=== PATIENT | male | born 1960 | race Caucasian/White ===

== ENCOUNTER 2016-09-24 17:38 | Inpatient (IN) | payer OTHER ==
[~2016-09-24] VITALS: Ht 185.4 cm; Wt 103.0 kg
[~2016-09-24 17:38] MED LIST: Atropine 1 mg/10 mL (Code) Syringe ONE; EPINEPHrine 0.1 mg/mL 10 mL Syringe ONE; Heparin 1,000 Unit/mL 10 mL Inj ONE; Heparin 1,000 Units/500 mL NS Premix IV ONE; Heparin 5,000 Units/500 mL NS Premix IV ONE; Nitroglycerin 50,000 mcg/250 mL D5W Premix IV ONE; Phenylephrine/NS-PF 100 mCg/mL 5 mL Syringe IVPUSH ONE
--- NOTE | 2016-09-24 17:51 | ED.REPORT ---
HPI-Chest Pain 40 and Over Date of Service Sep 24, 2016 ED Provider: Shamar Zuleta MD Patient is a 55 year old male who presents to the ED vis EMS from [facility] after experiencing an hour of crushing substernal chest pressure prior to arrival, with EKG changes consistent with an acute RI. EKG changes showed anterior ST elevation, with inferior reciprocal changes. The patient does not have any cardiac history. Patient reported associated diaphoresis but denies nausea or vomiting. He was treated with 3x nitroglycerin, 5000mL heparin, 324mg aspirin, a nitro bolus, and Plavix. When transferred to EMS stretcher for transport to [facility], the patient went into V-tach several times, requiring shocking 4x. He was started on amiodarone. There was also question of torsades rhythm, with the patient given IV magnesium. Patient is stable enroute and on arrival to the ED. Nursing Notes Stated Complaint: STEMI Nursing Notes Reviewed: Yes General Time Seen by MD: 17:42 Chief Complaint Chest pain Hx Obtained From: Patient, EMS Arrived By: Ambulance Sudden in Onset?: No Onset Occurred: 1 - 4 hours ago Symptom Duration: Since onset Location: : Substernal Quality: Painful Severity: Current: Moderate Severity: Maximum: Severe Recent Healthcare: No recent doctor visit, No recent hospitalization Similar Sx Previous: No Past Medical History Past Medical History none Past Surgical History none Smoking History Unknown if Ever Smoker Social History Other Social History: Good social support, , Local resident Ambulatory Status Independent Review of Systems Cardiovascular: Reports: Chest pain, Denies: Palpitations GI: Denies: Nausea, Vomiting Skin: Reports Diaphoresis, Denies Rash Complete sys rev & neg: except as marked. Physical Exam Initial Vital Signs see chart Initial VS: Reviewed Head / Eyes: Atraumatic, Normocephalic, PERRL ENT: Conjunctiva normal, No scleral icterus Neck: Supple, Full range of motion Skin: Warm (and well perfused), Dry, No cyanosis Neurologic: Alert, Oriented, Nonfocal Psychiatric: Mood/affect normal, Behavior normal, Normal thought content General/Constitutional: Awake, Alert Respiratory / Chest: Breath sounds NL, Breath sounds = bilat, No respiratory distress, No rales, No rhonchi, No wheezing Cardiovascular: Heart rate NL, Regular rhythm, Heart sounds NL, No gallop, No murmurs, No rubs, Peripheral circulation NL, Pulses = bilaterally Abdomen: Soft, Non-tender, No distention Lower Extremity / Pelvis / MS: Neurologic intact, Vascular intact Upper Extremity / MS: Neurologic intact, Vascular intact Interpretation & Diagnostics Lab Results Interpretation Result Diagram: 09/24/16181109/24/161811 Re-Eval/Medical Decision Med Decision/Clinical Course The patient is a 55-year-old male with no significant past medical history who presents from [facility] in [place] after complaining of crushing substernal chest pain and diaphoresis. EKG there was transmitted electronically and demonstrated anterior ST elevation with reciprocal inferior ST depressions consistent with acute ST elevation RI. The Wildlife Science Professor was activated and STEMI manager media was notified prior to the patient's arrival and was at the bedside upon his arrival. I was subsequently notified that just prior to transfer the patient developed several bouts of ventricular fibrillation requiring electrical defibrillation. Prior to arrival he is received aspirin, heparin bolus and infusion, 300 mg of Plavix and amiodarone. Upon arrival he was conversant with stable vital signs. He was immediately taken for cardiac catheterization with STEMI manager media at the bedside. Time of Eval: 17:42 Patient Status: Condition improved Re-Evaluation/Progress Note: Patient is transferred to the cath lab tech. He agrees with the plan for admission to the hospital. Consultation : Referral / Consult Name: Elier Blake MD Consulted With: Cardiology Call Returned at: 17:30 [facility] Programmer: Requested cath lab tech, Accepts admit Note: Dr. Blake is present in the ED to greet the patient on arrival. He was made aware of the STEMI and will take the patient directly to the cath lab tech. Counseled Regarding: Diagnosis, Need for admission Discharge & Departure Primary Impression: STEMI (ST elevation myocardial infarction) Involved coronary artery: unspecified coronary artery Qualified Code: I21.3 - ST elevation (STEMI) myocardial infarction of unspecified site Additional Impressions: Ventricular fibrillation Cardiac arrest Disposition: ADMITTED TO HOSPITAL Discharge Condition All VS Reviewed: Yes Condition: Improved Ref[facility]: [facility] Billable Proc Time Spent: 75-104 minutes Services Performed: Patient management by me, Time spent at bedside, Reviewing test results, Reviewing imaging, Discussing patient care, Documentation in record, Time with fam/surrogate Critical Care Notes: Discussing the case with STEMI manager media, making arrangements for transfer and discussing patient with physician at transferring hospital. Scribe Attestation Portions of this note were transcribed by Milla Laurent. I, Dr. Zuleta personally performed the history, physical exam and medical decision-making; I reviewed and confirmed the accuracy of the information in the transcribed note. Signed by: Na Garcia, 09/24/2016 1822 copies to: [facility] Shamar Maria MD Sep 24, 2016 17:51 Milla Laurent Sep 24, 2016 17:59
[2016-09-24] MEDS ORDERED: fentaNYL-PF 50 mCg/mL 2 mL Inj ONE (17:52)
[2016-09-24] MEDS ORDERED: Heparin 1,000 Unit/mL 10 mL Inj ONE (18:09)
[2016-09-24 18:15] LABS: BASOPHILS % (AUTO) 0.1 % (0-3); EOSINOPHILS % (AUTO) 0.3 % (0-5); Mean Corpuscular Hemoglobin 29.6 pg (27.0-35.0); Mean Corpuscular Volume 84.8 fL (81-100); NEUTROPHILS % (AUTO) 86.8 % (40-74); Platelet Count 216 bil/L (150-400)
[2016-09-24] MEDS ORDERED: Ondansetron 2 mg/mL 2 mL Inj ONE (18:27)
[2016-09-24 19:45] VITALS: BP 103/64; PULSE 82; RESP 16
[2016-09-24 19:55] VITALS: BP 103/68; PULSE 82; RESP 16; O2SAT 95
[2016-09-24 20:00] VITALS: BP 104/75; PULSE 83; RESP 18
--- NOTE | 2016-09-24 20:14 | DRSVH ---
PROCEDURE: X-RAY CHEST ONE VIEW, PORTABLE ([id number]) INDICATIONS: POST PROCEDURE TECHNIQUE: One view of the chest was acquired. COMPARISON: None. FINDINGS: Surgical changes and devices: None. Lungs and pleura: There is diffuse interstitial prominence. No focal pulmonary opacities. No pleural effusion. Mediastinum: Mediastinal contours appear normal. Heart size is mildly enlarged. Bones and chest wall: No suspicious bony lesions. Overlying soft tissues appear unremarkable. IMPRESSION: Diffuse interstitial prominence suspicious for mild pulmonary edema. Dictated by: Jackie Bhakta M.D. on 09/24/2016 at 20:13 Approved by: Jackie Bhakta M.D. on 09/24/2016 at 20:13
[2016-09-24] MEDS ORDERED: 0.9% Sodium Chloride 250 ML BOLUS IV PRN (20:40)
[2016-09-24] MEDS ORDERED: Sodium Chloride LOK Flush 10 mL Syringe IVFLUSH PRN (20:40)
[2016-09-24] MEDS ORDERED: Atropine 1 mg/10 mL (Code) Syringe IVPUSH PRN (20:40)
[2016-09-24] MEDS ORDERED: Ondansetron 2 mg/mL 2 mL Inj IVPUSH PRN (20:40)
[2016-09-24] MEDS ORDERED: 0.9% Sodium Chloride 400 ML (4 HRS) IV ONE (20:40)
[2016-09-24 21:00] VITALS: BP 112/71; PULSE 83; RESP 16
[2016-09-24] MEDS ORDERED: Potassium Chloride Oral 20 mEq SR Tab(K 3 - 3.7 & Creat < 2) PO ONE (21:00)
[2016-09-24] MEDS ORDERED: SIMV20TA4 PO (21:36)
[2016-09-24] MEDS ORDERED: ESOM20CA28 PO (21:36)
--- NOTE | 2016-09-24 22:25 | CS94 ---
[address] [address] DIAGNOSTIC CARDIAC CATHETERIZATION PATIENT: MACHELLE VALDEZ : 1960 MR#: [id number] ADMIT: 09/24/2016 JOB ID: [id number] PROCEDURE NOTE--CARDIAC CATHETERIZATION LABORATORY: SERVICE DATE OF PROCEDURE: Saturday, September 24, 2016 FLOOR CLEANER: Elier Blake MD PROCEDURE: 1. Coronary Angiogram--Emergent. 2. Left Heart Catheterization (LHC)--LVED; and Pullback. 3. Percutaneous Coronary Intervention (PCI): a. Primary PCI for STEMI--Xience DG--2.75 x 15 mm--Proximal LAD culprit occlusion. CLINICAL DETAILS: This 55-year-old man presented emergently to the Catheterization Laboratory after he was transferred to this hospital by EMS from [facility] where he had initially presented with severe retrosternal chest tightness. Total ischemic time from onset of chest pain to opening the artery was about 4 hours. In the outside Emergency Department he had ECG showing anterior ST elevation with reciprocal inferior ST depression. He had ventricular fibrillation four times; and he was defibrillated four times , and apparently received no CPR. He has no prior coronary history. Coronary risk factors include current smoking; and untreated hyperlipidemia. PROCEDURAL DETAILS: I evaluated him emergently on his arrival in the Emergency Department after having obtained history from Family members. We discussed the findings, impressions, and management considerations including recommendation to proceed emergently to coronary angiogram, and anticipated PCI for likely occluded proximal LAD. We discussed the procedure including possible risks and complications. We discussed bleeding, infection, and blood clot, as well as injury to nerve, artery, vein or kidney; and also arrhythmia, drug reaction--or Others. We discussed treatment as needed that could include surgery, pacemaker, transfusion. We discussed more serious complications that are possible including stroke, heart attack, , emergency surgery, and transfer for emergency bypass surgery. We discussed stents including mandatory dual platelet anticoagulation, and the possibility of repeat intervention procedures, early or late. After questions and discussion, he signed informed consent to proceed. He was brought to the Catheterization Laboratory where he was prepped sterilely and draped. Prior to the Catheterization Laboratory, he had received Aspirin, Heparin bolus, and Heparin IV infusion, as well as Plavix 300 mg p.o; and amiodarone 150 mg plus amiodarone IV infusion 1 mg/minute. He was relatively hypotensive with systolic blood pressure about 90. CORONARY ANGIOGRAM: Arterial access was obtained without difficulty in the right common femoral artery using fluoroscopic localization over the femoral head, and modified Seldinger technique to insert a 6-[place] Citizen 10 cm sheath. Catheters were advanced and exchanged over a long 0.035 inch J tipped Guidewire. First the Right Coronary Artery was imaged using a 6-[place] Citizen JL-4 Diagnostic catheter. Then, the Left Coronary Artery was imaged using a 6-[place] Citizen JL-4 Guide catheter. LHC: The JR catheter entered the left ventricle incidentally. LVED; and pullback were measured. PCI OF PROXIMAL LAD CULPRIT OCCLUSION: The diagnostic images were reviewed and decision made to proceed emergently with primary PCI of the occluded culprit Proximal LAD. There was ELVIE 0 flow initially. The 6-[place] Citizen JL-4 guide catheter was used for Intervention. The occlusion was crossed with a BMW Wire--0.14 inches x 180 cm--which initially entered a small diagonal at the site of occlusion. The artery was open after that. Door to artery open time was about 39 minutes. A 2nd similar BMW wire was placed distally in the LAD and the 1st wire was used to protect the very small diagonal during Intervention. For the Intervention, additional Plavix 300 mg was given for a total of 600 mg loading dose. Aliquots of NTG IC were used during the Intervention. Dimitris-Synephrine boluses 100 mg IV were used as well. PREDILATATION: The severe residual lesion at the site of occlusion was predilated with a Trek Balloon--2.5 x 15 mm--inflated to a maximum of 8 atmospheres across the site of culprit occlusion. The artery was improved with flow into the LAD. STENT: The proximal LAD target lesion was next treated with a Xience DG--2.75 x 15 mm--deployed across the lesion at 18 atmospheres. POSTDILATATION: The lesion was post dilated with a noncompliant Trek NC Balloon--2.75 x 12 mm--inflated twice within the stented segment to a maximum of 22 atmospheres. A larger postdilatation balloon was considered and deferred. There was an excellent final angiographic result with ELVIE-3 flow; no residual lesion; and no angiographic complication evident. The small diagonal at the treatment site was maintained, and improved, after Intervention. Procedure without difficulty. Patient tolerated procedure well. No complication. A side-arm sheath angiogram showed adequate access for a closure device. Arterial hemostasis was obtained without difficulty using a 6-[place] Citizen Angio-Seal device. The patient was transferred from the Catheterization Laboratory stable, improved, and now chest pain-free to the CCU for ongoing care including by the admitting Hospitalist Service. I discussed the procedure, findings, and further recommendations with the patient, with his , with multiple family members; and with the Hospitalist Service; and with Cardiology. FINDINGS: 1. LMCA: The left main coronary artery is a large, very short vessel with no angiographic disease. 2. LAD: The Left Anterior Descending Coronary Artery is occluded in its proximal--near ostial segment with haziness at the point of occlusion. Note some right to left collaterals were seen as well. When opened, the LAD is a large transapical vessel. There is one small diagonal at the occlusion site; and a small to moderate (2 mm) 2nd diagonal; and finally a 3rd moderate (2-2.25 mm) 3rd diagonal. The LAD has a moderate tubular lesion of about 50 % at the bifurcation of the 3rd diagonal. 3. LCX: The Left Circumflex Coronary Artery is a large codominant vessel. Its distribution consists primarily of one large branching posterolateral vessel. There is no angiographic obstructive disease. 4. RCA: Codominant. RCA has no obstructive disease. 5. LHC: LVED=38 mmHg; and no systolic gradient across AoV. CONCLUSIONS: 1. PCI--Xience DG of Proximal/near Ostial LAD--Xience 2.75 x 15 mm Stent post dilated at high pressure. 2. ACS-anterior STEMI with Proximal LAD culprit occlusion. 3. Coronary Artery Disease (CAD)--Single-Vessel CAD of Proximal LAD; and also note intermediate Mid LAD lesion. 4. Elevated LVED. RECOMMENDATIONS: 1. ECASA-Indefinitely. 2. Plavix--Plan one year of Plavix with ongoing cardiology follow-up if well tolerated. I discussed with the patient and his and Family the critical importance of mandatory dual antiplatelet therapy; and not to stop Plavix for any reason without immediate Cardiology consultation. 3. Echocardiogram. 4. OMT--Optimal medical therapy including aspirin, Plavix, beta daphne, PRADIP inhibitor, and high-intensity statin. 5. Risk factor modification; including we discussed the critical importance of smoking cessation. 6. COMMENT: Follow-up can include consideration of the intermediate Mid LAD lesion. MTDD
--- NOTE | 2016-09-24 23:00 | PCM.HPMED ---
Subjective Date of Service Sep 24, 2016 Primary Provider: Admitting Physician: Elier Blake MD [facility] Attending Physician: Elier Blake MD Chief Complaint: chest pain History of Present Illness: Patient is a 55 year old male with a pmh of hypertension and hyperlipidemia that is presenting to the ER as a transfer from [facility]. Patient initially presented with hour of crushing substernal chest pressure prior to arrival, patient had EKG changes consistent with an acute WA. EKG changes showed anterior ST elevation, with inferior reciprocal changes. . Patient reported associated diaphoresis but denies nausea or vomiting. He was treated with 3x nitroglycerin, 5000mL heparin, 324mg aspirin, a nitro bolus, and Plavix. When transferred to EMS stretcher for transport to [facility], the patient went into V-tach several times, required to be shocked 4 times and return to sinus rythym. Patient was brought into the brush clearing laborer and urgent catherization was done. Patient had a xience drug eluting stent placed on the proximal LAD. Patient returned from the laborer salvage stable and in good spirits. Patient is currently stable and being monitored in the CCU. Review of Systems: Cardiovascular: Reports: Chest pain, Denies: Palpitations GI: Denies: Nausea, Vomiting Skin: Reports Diaphoresis, Denies Rash Complete sys rev & neg: except as marked. Allergies Coded Allergies: No Known Allergies (Unverified , 09/24/16) Home Medications pt takes a statin at home but has not really been taking it lately PMH none Surgical History none Family History non-contributory Social History Hx Alcohol Use: Yes (Very rare) Hx Tobacco Use: Yes Smoking Status: Current Every Day Smoker, Unknown if Ever Smoker Living Arrangement: with Family Exam Vital Signs Vital Sign - Last Date Time Temp Pulse Resp B/P Pulse Ox O2 Delivery O2 Flow Rate FiO2 09/24/16 21:00 83 16 112/71 09/24/16 19:55 36.5 95 Nasal Cannula 2.00 Exam General: Alert and oriented in no acute distress Head / Eyes: Atraumatic, Normocephalic, PERRL Respiratory / Chest: Breath sounds NL, Breath sounds = bilat, No respiratory distress, No rales, No rhonchi, No wheezing Cardiovascular: Heart rate NL, Regular rhythm, Heart sounds NL, No gallop, No murmurs, No rubs, Peripheral circulation NL, Pulses = bilaterally ENT: Conjunctiva normal, No scleral icterus Neck: Supple, Full range of motion Skin: Warm (and well perfused), Dry, No cyanosis Neurologic: Alert, Oriented, Nonfocal Abdomen: Soft, Non-tender, No distention Lower Extremity / Pelvis / MS: Neurologic intact, Vascular intact Upper Extremity / MS: Neurologic intact, Vascular intact Lab and Diagnostics Result Diagram: 09/24/16181109/24/161811 12-lead ECG Sinus rhythm . Low voltage, precordial leads . Probable anteroseptal infarct, old 80 bpm Assessment & Plan Patient is a 55 year old male with no significant past medical history that is presenting with a 1 day history of crushing chest pain that required catherization and eventual stent placement. Patient is currently out of the brush clearing laborer and has been stable since then. Patient has no complaints. Chest pain with proximal LAD occlusion - Patient had cardiac event that resulted in acute WA which evolved in v tach - Patient underwent catherization with DG stent placed - Patient currently stable with no more repeat events noted - Patient will need to be on aspirin indefinitely and plavix for a year - Patient will require echocardiogram in the am - Will add beta daphne, PRADIP, and high dose statin - will continue to monitor - will downgrade from CCU if remains stable. Smoking - Patient advised to quit smoking - Patient agrees and will ask for help if needed DVT ppx via scds GI ppx not warranted at the moment VTE Mechanical Devices: Intermittant Pneumatic CD Marcell Tamez MD Sep 24, 2016 23:00
[2016-09-24] MEDS ORDERED: Alum-Mag Hydrox-Simeth 30 mL Suspension PO PRN (23:05)
[2016-09-24] MEDS ORDERED: Polyethylene Glycol (PEG) 17 Gm Powder PO PRN (23:05)
--- NOTE | 2016-09-24 23:06 | CONS ---
[address] [address] CONSULTATION REPORT PATIENT: MACHELLE VALDEZ : 1960 MR#: [id number] ADMIT: 09/24/2016 JOB ID: [id number] CARDIOLOGY CONSULTATION NOTE--INITIAL CRITICAL CARE EVALUATION (EMERGENCY DEPARTMENT): DATE OF EVALUATION: Saturday, September 24, 2016 at 5:30 p.m. CONSULTING PHYSICIAN: Cardiology-Elier Blake MD. PROBLEMS: 1. Acute Coronary Syndrome(ACS): a. Chest pain--severe tightness; ischemic time 4 hours from onset to balloon. b. STEMI--anterior ST elevation myocardial infarction. c. Cardiac Arrest--VF (ventricular fibrillation) 4 times at outside emergency department; and now alert; and on amiodarone after defibrillation four times. CORONARY ARTERY DISEASE RISK FACTORS: 1. No history of hypertension. 2. History of hyperlipidemia--not taking his statin. 3. Current cigarette smoker. 4. No family history of premature coronary disease. 5. No history of diabetes. 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 Severe typical chest pain; and ECG with anterior ST elevation; and inferior reciprocal ST depression. HISTORY OF PRESENT ILLNESS: I came emergently to see this 55-year-old man as he arrived by EMS to the emergency department in transfer from [facility] emergency department where he had first presented. He has no prior history of heart disease. 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 He has no cardiac symptoms, effort limitation or effort-related symptoms. Today, he did a work out at home; and at the conclusion of the workout in the shower he developed severe retrosternal "tightness" without radiation. He felt very bad, and after an hour and a half he presented to the emergency department. In the emergency department, he had ventricular fibrillation four times with defibrillation four times. He apparently had no CPR and was fully alert after return of spontaneous circulation with a witnessed cardiac arrests. Amiodarone 150 mg IV bolus with amiodarone IV infusion 1 mg/minute was started; and he was given aspirin as well as heparin bolus and heparin IV infusion prior to his transfer here. CARDIAC: He has no other pre-existing cardiac symptoms of chest pain or ischemia. He has no symptoms of heart failure such as dyspnea on exertion, nocturnal dyspnea or edema. He has no history of arrhythmia or arrhythmic symptoms prior to today including TachyPalpitations, presyncope, or syncope. Regarding other possible underlying vascular disease, he has no history of CVA or current symptoms of TIA. No claudication. Regarding possible dual antiplatelet therapy, he indicates reliable to take mandatory medicines if needed; has no upcoming anticipated surgery; and he has no current bleeding symptoms. ALLERGIES: No known drug allergies. I do not elicit history of allergy to contrast media, seafood, fish or iodine. MEDICATIONS: Nexium: A statin which he does not take regularly. PAST MEDICAL HISTORY: Generally healthy. Generally vigorously active. He reports not treated for other significant medical illnesses. REVIEW OF SYSTEMS: I questioned his daughter and son-in-law prior to his arrival and I questioned him in the emergency setting regarding a 13 point review of systems which is unremarkable, noncontributory, or negative except as noted, including: No history of thyroid disorder. No history of lung disorder including asthma or COPD or chronic bronchitis. Note indigestion; but otherwise no history of GI disorder including hepatitis, jaundice, ulcer. PERSONAL AND SOCIAL HISTORY: Cigarettes--about a half pack of cigarettes or less a day, duration undetermined. Alcohol--He reports little alcohol use. 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 Family--He is . He lives with his and has a daughter. FAMILY HISTORY: No family history of premature coronary disease. PHYSICAL EXAMINATION: General appearance: Robust man who is awake, alert and appropriate but he has substantial chest discomfort; and slightly groggy after ventricular fibrillation four times. VITAL SIGNS: Systolic blood pressure 90-100, heart rate 70 and regular and sinus rhythm on telemetry. SpO2 95% on nasal cannula. Respiratory rate 18 and unlabored. Weight 220 pounds. Neurologic and mental status: No overt focal neurologic defect noted. He is alert, oriented, appropriate and conversant. HEENT: PERRL, conjunctivae pink. Sclerae not icteric. Mouth: Mucous membranes intact with Mallampati 4. Neck: Carotid upstroke intact bilaterally without bruit. Jugular venous pressure difficult to set to assess due to obesity examined supine. No palpable thyromegaly. No palpable cervical lymphadenopathy. Lungs clear to auscultation bilaterally examined supine. CARDIAC: Cardiac examination notable for distant heart sounds. S4 gallop. No loud murmur heard. Abdomen: Obese but otherwise unremarkable without tenderness, mass, hepatosplenomegaly, or bruit of abdominal aortic aneurysm. Extremities: No edema. Pedal pulses intact bilaterally at the dorsalis pedis. DIAGNOSTIC STUDIES ELECTROCARDIOGRAM: I reviewed the initial ECG from [facility] ED; and the admitting ECG here. They show sinus rhythm with anterior ST elevation and confirmatory reciprocal inferior ST depression diagnostic of anterior STEMI. CHEST-X-RAY: After his catheterization, the chest x-ray was done and shows mild cardiomegaly; and is suggestive of mild pulmonary venous hypertension consistent with some degree of heart failure. LABORATORIES: Laboratory studies pending initially. CBC includes WBC elevated to 20,500 with hemoglobin 14.4, hematocrit 41.3, normal indices and platelet count 216,000. Chemistries include hypokalemia with potassium 3.2, BUN 12, creatinine 0.91, glucose elevated at 183. Cardiac markers include CK total 345 with CK-MB 4.6, no troponin. ASSESSMENT: I discussed my findings, impressions, and management considerations with the emergency physician at [facility] initially; then with the emergency department staff here; then with the family including daughter and son-in-law; with the patient; and later with many family members including : 1. ACS--Anterior ST elevation myocardial infarction with early ventricular fibrillation (four times), resuscitated: He presented with typical severe symptoms and confirmatory ECG: His course was complicated by witnessed ventricular fibrillation in the ED with a very successful immediate resuscitation. I discussed the recommendation to proceed to emergent catheterization and anticipated primary percutaneous coronary intervention for likely coronary disease, and suspected occluded proximal LAD culprit lesion. We proceeded immediately to the catheterization laboratory. RECOMMENDATIONS: 1. Cardiac Catheterization--Emergent; and anticipated primary percutaneous intervention. 2. Admit to Hospitalist. 3. Echo. 4. OMT--Guideline directed medical therapy including aspirin, Plavix, statin, beta-daphne tomorrow and later PRADIP inhibitor. 5. Consider DC amiodarone if stable after revascularized. 6. Guideline directed management of risk factors including we discussed smoking cessation and the importance of statin. [facility]
[2016-09-24 23:30] VITALS: BP 110/81; PULSE 85; RESP 17; O2SAT 95
[2016-09-25] VITALS (7 sets, daily range): BP systolic 92–107; BP diastolic 64–78; PULSE 77–90; RESP 14–19; O2SAT 95–97
[2016-09-25 03:31] LABS: BASOPHILS % (AUTO) 0.1 % (0-3); EOSINOPHILS % (AUTO) 0.3 % (0-5); MONOCYTES % (AUTO) 11.1 % (4-12); Mean Corpuscular Hemoglobin 29.5 pg (27.0-35.0); Mean Corpuscular Volume 85.9 fL (81-100); NEUTROPHILS % (AUTO) 69.3 % (40-74); Platelet Count 195 bil/L (150-400)
[2016-09-25 04:12] LABS: Magnesium 2.4 mg/dL (1.6-2.6)
--- NOTE | 2016-09-25 04:48 | NUR ---
Cardiac/Resp 1945 - Patient admitted to room 2020, alert and oriented, denies any pain or chest pain, admission completed, med rec done, no distress noted, staying in room tonight with patient. 0000 - Patient denies chest pain, feeling better per patient, no distress noted, having a few funs of reperfusion V-tach, patient states he feels a flutter in his chest when it happens, 40mEq K given and will recheck soon, IV S.L. 0200 - Potassium recheck came back at 4.7, resting in bed, 044 - Patient stable and changed to PCC status, patient has bee NSR with PVCs since about 120, 1 more run of reperfusion V-tach noted and patient asymptomatic, no distress noted, will continue to monitor, BP 96.67 at this time, HR NSR 76, afebrile this shift. Addendum: 09/25/16 at 0506 by KATI VIRAMONTES RN Amended: Links added.
[2016-09-25 06:10] LABS: TROPONIN T 5.38 ug/L (0.0-0.011)
--- NOTE | 2016-09-25 11:19 | DRSVH ---
[facility] [address] [place] [address] Echocardiogram Report Name: MACHELLE VALDEZ Study Date: 09/25/2016 Height: 73 in Hospital Exam Location: [facility] Weight: 225 lb Gender: Other BSA: 2.3 m2 : 1960 Age: 55 yrs BP: 107/68 mmHg Reason For Study: S/P HEART CATH Ordering Physician: Elier Blake Performed By: Erica Cobos Referring Physician: WILMA MARLBOROUGH Interpretation Summary The left ventricle is normal in size. Left ventricular systolic function is moderately reduced. The ejection fraction is estimated to be 40-45%. There is hypokinesis to akinesis along the entire LAD territory (anteroseptal, apical, anterior, and anterolateral wall). The right ventricle is normal in size and function. Right ventricular systolic pressure is estimated to be 27 mmHg plus the clinically estimated CVP which cannot be estimated on this exam. Both atria are normal in size. There is no significant valvular heart disease. The ascending aorta is mildly enlarged. Procedure: A two-dimensional transthoracic echocardiogram with color flow and Doppler was performed. The apical views were difficult to obtain and are suboptimal in quality. A contrast injection of Definity was performed to improve assessment of LV function. A total of 7 cc of contrast was given. Contrast was injected into an intravenous site in the right arm. There is no prior echocardiogram noted for this patient. The patient was in normal sinus rhythm during the exam. Left Ventricle: The left ventricle is normal in size. Left ventricular wall thickness is normal. Left ventricular systolic function is moderately reduced. The ejection fraction is estimated to be 40-45%. There is hypokinesis to akinesis along the entire LAD territory (anteroseptal, apical, anterior, and anterolateral wall). Assessment of diastolic parameters indicates normal left ventricular diastolic function and normal filling pressures. Right Ventricle: The right ventricle is normal in size and function. Atria: Both atria are normal in size. There is no Doppler evidence for an atrial septal defect. Mitral Valve: The mitral valve leaflets appear normal. There is no evidence of stenosis, fluttering, or prolapse. There is mild mitral regurgitation. Aortic Valve: The aortic valve is trileaflet. The aortic valve opens well. No aortic regurgitation is present. Tricuspid Valve: The tricuspid valve leaflets are thin and pliable. There is mild tricuspid regurgitation. Right ventricular systolic pressure is estimated to be 27 mmHg plus the clinically estimated CVP which cannot be estimated on this exam. Pulmonic Valve: The pulmonic valve leaflets are thin and pliable; valve motion is normal. There is trace pulmonic regurgitation. There is no significant valvular heart disease. Great Vessels: The aortic root is normal size. The ascending aorta is mildly enlarged. The pulmonary artery is normal size. The inferior vena cava was not visualized. Pericardium/ Pleura There is no pericardial effusion. There is no pleural effusion. MMode/2D Measurements & Calculations LVIDd LA dimension: 4.0 cm RA long axis: 5.0 cm LVOT diam: 2.0 cm : 4.7 cm AoV Openin.0 cm LVIDs LA A2 area: 20.8 cm RA area: 14.9 cm Ao root diam: 3.8 cm : 3.3 cm LA A4 area: 17.4 cm RA vol: 38.1 ml Aortic Jxn: 3.2 cm FS: 29.2 % LA length (vol) RA : 16.8 ml/m asc Aorta Diam EPSS RVDd major: 6.2 cm : 0.7cm LA vol: 59.8 ml RVDd minor: 3.3 cm Ao Arch Diam IVSd LA vol index (Proximal trans.) : 0.9cm LVPWd : 26.4 ml/m2 : 0.9cm EDV(MOD- LV hargrove. diameter/BSALV sys. diameter/BSA sp2): (cm/m^2): 2.1 (cm/m^2): 1.5 90.7 ml Doppler Measurements & Calculations MV E max ryne MV E/A: 1.4 TR max ryne MV P1/2t max ryne : 75.4 cm/sec Med Peak E' Ryne : 257.3 cm/sec MV A max ryne TR max PG : 53.5 cm/sec E/E' med: 9.3 : 26.5 mmHg MVA(P1/2t): 4.2 cm2 MV P1/2t Pulm A Revs Dur PA V2 max : 52.0 msec : 68.8 cm/sec MV A dur: 0.11 sec PA mean PG PA Accel Time PA V2 mean Pulm A Revs Dur - MV A : 50.5 cm/sec Dur: 0.01 msec Reading Physician:MAGED
--- NOTE | 2016-09-25 13:38 | PCM.PNMED ---
Subjective Date of Service Sep 25, 2016 Subjective No chest pain. No dyspnea. Some chest tenderness from where he was defibrillated. No nausea or abdominal pain. No diarrhea. Exam Vital Signs Vital Sign - Last Date Time Temp Pulse Resp B/P Pulse Ox O2 Delivery O2 Flow Rate FiO2 09/25/16 08:47 36.5 77 16 101/68 97 Nasal Cannula 1.00 Intake and Output 09/24/16 09/24/16 09/25/16 Cumulative From/Thru 14:59 22:59 06:59 09/24/16 20:05 - 09/25/16 04:42 Intake Total 640 ml 640 ml Output Total 1200 ml 1200 ml Balance -560 ml -560 ml Intake Oral 240 ml 240 ml IV Total 400 ml 400 ml Output Urine Total 1200 ml 1200 ml Exam Alert oriented 3. No distress. Neck is supple. Lungs are clear with normal effort Heart is regular without murmur gallop or rub Abdomen is soft nondistended Extremities are free of edema and good pedal pulses. Reglan is unremarkable. IVs and Medications Medications Reviewed: Medications were reviewed in detail Lab and Diagnostics Result Diagram: 09/25/1631409/25/16314 12-lead ECG Sinus rhythm . Low voltage, precordial leads . Probable anteroseptal infarct, old 80 bpm Assessment & Plan Patient is a 55 year old male with no significant past medical history that is presenting with a 1 day history of crushing chest pain that required catherization and eventual stent placement. Patient is currently out of the cardiac cath rn and has been stable since then. Patient has no complaints. 1. STEMI. POA. Patient underwent emergent PCI with stenting of the LAD. He appeared to have single-vessel CAD. Postprocedure he has been doing well. No residual chest pain. His troponin here was 5. An echo does indicate mildly diminished systolic function at 50% with hypokinesis of anterior wall. There was approximate 4 hours from the beginning of his symptoms to PCI as he came from home by by POV to an outside hospital 9 was transferred for PCI. Continue medical therapy and observation. Cardiology is following along. Anticipate that he will be all right for discharge tomorrow. 2. Tobacco dependence. POA. I stressed the importance of smoking cessation. 3. Mild systolic dysfunction, POA. This appears to be secondary to his event yesterday may represent cardiac stenting. Continue medical therapy with interval follow-up tobacco in 1 or 2 months. Anticipate discharge likely tomorrow on September 26 Pain Evaluation: Adequate Pain Control VTE Mechanical Devices: Intermittant Pneumatic CD Resuscitation Status: CPR: Attempt Resuscitation Time spent 25 minutes Florentino Purvis MD Sep 25, 2016 13:38
--- NOTE | 2016-09-25 16:25 | PROG NOTE ---
[address] [address] PROGRESS NOTE PATIENT: MACHELLE VALDEZ : 1960 MR#: [id number] ADMIT: 09/24/2016 JOB ID: [id number] PROGRESS NOTE--CARDIOLOGY INPATIENT FOLLOW-UP: DATE OF EVALUATION: Monday, September 26, 2016. TRANSFORMATION MANAGER: Cardiology--Elier Blake MD PROBLEM LIST: ACS: STEMI--Anterior [place]. VF x 4. Primary PCI of proximal LAD culprit occlusion. SUBJECTIVE: Hospital Day-2. I saw Mr. Valdez along with his on Cardiology rounds this morning following his acute presentation yesterday, with emergent primary percutaneous coronary intervention for anterior myocardial infarction with ventricular fibrillation four times. HOSPITAL COURSE: Today he is overall much improved; and looks much better to his family members compared to his presentation yesterday. He has some soreness in his chest attributable to the site of the four defibrillations prior to his transfer here. He has been chest pain free, and clinically stable, and progressing very well. He has not been out of bed much yet. He has had good p.o.intake and good urine output. MEDICATIONS: Guideline directed optimal medical therapy has been started, including aspirin and Plavix, as well as low-dose beta daphne, low-dose PRADIP inhibitor, and high-intensity statin. OBJECTIVE: Examination: He appears well and much better than yesterday. He is comfortable. Vital signs stable with systolic blood pressure about 110 mmHg. I and O shows good urine output after contrast media and cardiac arrest. Lungs: Clear. Heart: S4. RLE: His right groin Angio-Seal closure site is intact and perfusion in the right lower extremity is intact. STUDIES: Follow-up ECG shows resolution of the acute changes. There are Q-waves V1-V3 consistent with his anterior myocardial infarction. CXR: His chest x-ray yesterday showed mild cardiomegaly and some pulmonary venous hypertension suggestive of heart failure. He was however without shortness of breath, or other findings of heart failure. LABORATORY: His peak CK total is moderately [id number], consistent with his late presentation. He presented to the outside ED an hour and a half after the onset of symptoms and total ischemic time until revascularization was over 4 hours. Creatinine stable 0.87. His initial hypokalemia of 3.2 is now repleted with potassium 4.6. BNP is somewhat elevated at 897. IMPRESSION: 1). Anterior myocardial infarction with primary percutaneous coronary intervention of proximal left anterior descending (" maker lesion"): Overall he is doing very well after his dramatic presentation yesterday with very severe chest pain and four episodes of ventricular fibrillation requiring defibrillation four times--but not requiring CPR or intubation, and with excellent hemodynamic and neurologic outcome. The culprit lesion was revascularized. I discussed his clinical course, findings, impressions, and ongoing management considerations at length with him and his . We discussed the critical importance of mandatory dual antiplatelet therapy and not to stop Plavix for any reason without immediate Cardiology consultation because of the risk of life-threatening stent thrombosis. We discussed cigarette smoking cessation. He is motivated. I offered him pharmacotherapy and counseling classes. We discussed optimal medical therapy. We discussed their questions, including return to work. I emphasized the importance of ongoing primary care follow-up; and Cardiology follow-up; and also exercise prescription for moderate common sense, symptom-limited, stepwise increase in his activities. 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 I emphasized the importance and real benefit of participating in a cardiac rehabilitation program. RECOMMENDATIONS: 1. Echocardiogram: I reviewed the Echo images preliminarily as they were being performed at the bedside. There is a substantial anteroapical wall motion defect with severe hypokinesis and akinesis. Overall ejection fraction is about 35%. 2. OMT: Guideline-directed optimal medical therapy as discussed. 3. Risk factor modification including cigarette cessation. 4. Chest x-ray shows heart failure: He is clinically stable, and spontaneously had net diuresis. Plan to monitor for CHF; consider follow- up x-ray; and add diuretic if needed. MTDD
--- NOTE | 2016-09-25 17:17 | NUR ---
Social Work: Screen D: Per EMR review, pt is a 55 year old male admitted for STEMI. Pt is Hardik Johansen. PCP is [facility]. NOK is Alis Hebert, , . Advanced directives not on file- RN requested from pt. Readmit score not entered at this time. Pt lives in [facility] with his . He is I at baseline. Pt arrived on 09/24/16 and underwent emergent heart cath. No sw needs or barriers identified at this time. A: Pt who is I at baseline. P: Anticipate discharge home via POV once medically stable. 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 DAKOTA Yoon
--- NOTE | 2016-09-25 18:26 | NUR ---
BP/Headache Patient alert and oriented x3, MÉNDEZ, reports full sensation throughout shift. Reported 5/10 headache, 975 tylenol administered -- patient reported decrease in pain to 2/10. BP throughout shift has been low 100s systolic to low 90s, MD and javascript developer aware, encouraging patient to drink plenty of fluids. No reports of SOB/dizziness throughout shift, tolerating PO intake well, 540 total for urinary output. No reports of n/v/d/c or abdominal pain. Right groin site has minimal, old sanguinous dressing -- unchanged, soft with no hematoma noted.
[2016-09-26] VITALS (10 sets, daily range): BP systolic 92–110; BP diastolic 58–76; PULSE 73–87; RESP 18; O2SAT 90–99
--- NOTE | 2016-09-26 06:00 | NUR ---
Tele / Groin Site / Hypotensive / Resp Sats Denies chest pain, Tele SR 80's. SBP's in the 90's to low 100's. HS dose of Metoprolol 12.5mg withheld. Right groin site dressing intact with small amount of old drainage noted. No hematoma or active signs of bleeding. Pedal pulses palpable. Pt denies abdomen or flank pain. Denies SOB, RA sats 95% while awake, SpO2 sats while sleeping at 90% Pt placed on O2 @ 2L and SpO2 sats improved to 92-93%. Pt up independently overnight, gait steady.
--- NOTE | 2016-09-26 09:24 | PCM.DIMED ---
Discharge Instructions Date of Service Sep 26, 2016 Dates of Hospitalization Sep 24, 2016 at 19:52 Discharge Diagnosis Discharge Diagnosis 1. STEMI. 2. CAD with stenting of LAD. 3. Gastroesophageal reflux Test Results Echo or ultrasound of the heart indicated very minor loss of function in the anterior part of the heart. I expect that this will improve over the next 1-2 months with cardiac rehabilitation and medical therapy. Diet Heart Healthy Activity Limited until seen by PCP Call your provider Shortness of breath, Chest pain Patient Instructions Follow-up was scheduled [facility] cardiology in 2-4 weeks Will initiate referral to cardiac rehabilitation. Follow-up with PCP in: 2 weeks Florentino Purvis MD Sep 26, 2016 09:24
[2016-09-26] MEDS ORDERED: Pantoprazole 40 mg ER24 Tablet PO ONE (09:25)
[2016-09-26] MEDS ORDERED: ASPI81TA3 PO (09:26)
[2016-09-26] MEDS ORDERED: ATOR40TA69 PO (09:26)
[2016-09-26] MEDS ORDERED: LISI-571 PO (09:26)
[2016-09-26] MEDS ORDERED: CLOP75TA28 PO (09:26)
[2016-09-26] MEDS ORDERED: METO25TA6 PO (09:26)
--- NOTE | 2016-09-26 13:54 | PCM.PNMED ---
Subjective Date of Service Sep 26, 2016 Subjective No chest pain, or dyspnea. He denies any abdominal pain nausea or vomiting. He has been ambulating without pain or dyspnea. Some nocturnal desaturations were noted. He does have a history of snoring and possible apnea. His . He has never been diagnosed with obstructive sleep apnea. Exam Vital Signs Vital Sign - Last Date Time Temp Pulse Resp B/P Pulse Ox O2 Delivery O2 Flow Rate FiO2 09/26/16 12:16 36.6 75 18 107/76 98 Room Air 09/26/16 03:13 2.00 Intake and Output 09/25/16 09/25/16 09/26/16 Cumulative From/Thru 15:00 23:00 07:00 09/24/16 20:05 - 09/26/16 06:34 Intake Total 540 ml 675 ml 1855 ml Output Total 975 ml 1200 ml 3375 ml Balance -435 ml -525 ml -1520 ml Intake Oral 540 ml 675 ml 1455 ml IV Total 400 ml Output Urine Total 975 ml 1200 ml 3375 ml Exam Alert oriented 3, fluent speech Normal scalp paraffin to anicteric sclerae Neck is supple. Lungs are clear, normal effort Heart is regular without murmur gallop or rub Abdomen is soft nondistended Exams are free of edema good pedal and radial pulses. IVs and Medications Medications Reviewed: Medications were reviewed in detail Lab and Diagnostics Result Diagram: 09/25/16 0315 09/26/16 0305 12-lead ECG Sinus rhythm . Low voltage, precordial leads . Probable anteroseptal infarct, old 80 bpm Assessment & Plan Patient is a 55 year old male with no significant past medical history that is presenting with a 1 day history of crushing chest pain that required catherization and eventual stent placement. 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 Patient has no complaints. 1. STEMI. POA. Patient underwent emergent PCI with stenting of the LAD. He appeared to have single-vessel CAD. Postprocedure he has been doing well. No residual chest pain. His troponin here was 5. An echo does indicate mildly diminished systolic function at 50% with hypokinesis of anterior wall. There was approximate 4 hours from the beginning of his symptoms to PCI as he came from home by by POV to an outside hospital 9 was transferred for PCI. Continue medical therapy and observation. Cardiology is following along. Anticipate that he will be all right for discharge Thursday.. 2. Tobacco dependence. POA. I stressed the importance of smoking cessation. 3. Mild systolic dysfunction, POA. This appears to be secondary to his event yesterday may represent cardiac stenting. Continue medical therapy with interval follow-up tobacco in 1 or 2 months. Anticipate discharge likely tomorrow on September 27, spoke with social work ike put and in electronic order for a referral to cardiac rehabilitation in [place] near his home Pain Evaluation: Adequate Pain Control VTE Mechanical Devices: Intermittant Pneumatic CD Resuscitation Status: CPR: Attempt Resuscitation Time spent 30 min Florentino Purvis MD Sep 26, 2016 13:54
--- NOTE | 2016-09-26 14:25 | PROG NOTE ---
[address] [address] PROGRESS NOTE PATIENT: MACHELLE VALDEZ : 1960 MR#: [id number] ADMIT: 09/24/2016 JOB ID: [id number] PROGRESS NOTE--CARDIOLOGY INPATIENT FOLLOW-UP: DATE: Monday, September 26, 2016. Physician: Elier Blake MD. PROBLEMS: ACS: STEMI VF; and defibrillation (four times) PCI--Occluded proximal LAD. SUBJECTIVE: Hospital Day-3. I saw the patient along with his on Cardiology rounds this morning. He is now 36 hours after he presented with anterior myocardial infarction complicated by resuscitated ventricular fibrillation. Overall, he has done very well, continues to do well; and is progressing today. He tells me he has been up out of bed. He feels well when up. No Dyspnea. No difficulty with his right groin access site or right leg. Yesterday, he really "felt like hit by a truck;" but today improved. OBJECTIVE: Examination: Vital signs stable. Blood pressures remain borderline in the 90s but well tolerated. He has continued to have vigorous urine output. He looks well and improved. He is not short of breath. I examined the right groin, which is fully intact with minor ecchymosis, no bruit; and distal pulses intact. ASSESSMENT: I discussed his status and our recommendations fully again; and with Cardiology. We have had several long discussions along this line. We discussed his medical course, and his medications, including the critical importance of mandatory dual antiplatelet therapy again. We discussed rehab program. We discussed return to work which needs to be assessed in terms of how well he tolerates increasing activity and especially in view of the vigorous activity in his job. He understands this remains to be monitored as he progresses. He is anxious to go home today. I recommended that he remain until tomorrow given that he had such as serious illness and is just getting out of bed now to ambulate. RECOMMENDATION: 1. Monitor his blood pressure -- low threshold to back off on lisinopril if needed. 2. Ambulate. 3. Anticipate discharge in a.m. MTDD
--- NOTE | 2016-09-26 14:35 | NUR ---
Cardiac Denies chest pain, Tele SR 80's, per pipe organ technician. SBP's in the 90's to low 100's. AM dose of Metoprolol 12.5mg withheld, per Dr. Purvis's orders. Right groin site dressing intact with small amount of old drainage noted. Dr. Blake removed dressing this morning, no hematoma or oozing present. Pedal pulses palpable. Pt denies abdomen or flank pain. Tolerating heart healthy diet. Pt ambulated in hallway, gait steady, denies dizziness. OK to be up independently, at bedside. Voids per urinal. D/C tomorrow, per Cardiology.
--- NOTE | 2016-09-27 00:56 | NUR ---
Transfer Right groin site C/D/I without apparent complications. Pt [id number]. Report given and care transfer to the receiving RN ( Uyen Baez RN) at the bedside.
[2016-09-27 04:55] VITALS: BP 83/53; PULSE 73; RESP 18; O2SAT 94
--- NOTE | 2016-09-27 05:02 | NUR ---
LOW BP Pt was transferred from room 2020 to room 2030 @ 0100. Pt was stable, independent, RA, A&Ox3, R groin site CDI with no swelling or tenderness. Slept well throughout the night. Pt BP vitals at 0500 were 83/53. Pt states he feels fine and that he received metoprolol earlier in the evening that drops his BP quite a bit. No other issues noted, ice water given, no pain noted.
[2016-09-27 05:30] VITALS: PULSE 84
[2016-09-27 10:02] VITALS: PULSE 80
--- NOTE | 2016-09-27 10:24 | PCM.DC.MED ---
Discharge Summary Date of Service Sep 27, 2016 Dates of Hospitalization Date of Hospital Admission Sep 24, 2016 at 19:52 Date of Discharge: Sep 27, 2016 Providers: Admitting Physician: Elier Blake MD [facility] Attending Physician: Elier Blake MD Diagnosis at Time of Discharge Diagnosis at Time of Discharge 1. STEMI. 2. CAD with stenting of LAD. 3. Gastroesophageal reflux Consultations Cardiology, Dr. Blake Procedures XRay, CTs & MRIs Chest x-ray is unremarkable ECG 12 Lead Sinus rhythm . Low voltage, precordial leads . Probable anteroseptal infarct, old 80 bpm Cardiac Echo Impression Mild systolic dysfunction with an EF of approximately 50% and anterior wall akinesis versus hypokinesis. No valvular disease. Invasive Procedures Coronary angiography and PCI with stenting of the LAD. See procedure notes for details. Brief History Patient is a 55 year old male with a pmh of hypertension and hyperlipidemia that is presenting to the ER as a transfer from [facility]. Patient initially presented with hour of crushing substernal chest pressure prior to arrival, patient had EKG changes consistent with an acute KS. EKG changes showed anterior ST elevation, with inferior reciprocal changes. . Patient reported associated diaphoresis but denies nausea or vomiting. He was treated with 3x nitroglycerin, 5000mL heparin, 324mg aspirin, a nitro bolus, and Plavix. When transferred to EMS stretcher for transport to [facility], the patient went into V-tach several times, required to be shocked 4 times and return to sinus rythym. Patient was brought into the worm farm laborer and urgent catherization was done. Patient had a xience drug eluting stent placed on the proximal LAD. Patient returned from the warehouse general laborer stable and in good spirits. Patient is currently stable and being monitored in the CCU. Hospital Course Hospital course. Patient was transferred from outside hospital for STEMI. He was taken to the coronary catheterization lab where angiography indicated single -vessel disease of the LAD with an acute occlusion of a critically stenosed vessel. This was opened and the patient was stented. Repeat his troponin and 5. The patient did well after the procedure without recurrent chest pain, arrhythmia, or evidence of heart failure. Able to ambulate without difficulty. He was started on typical cardioprotective medical regimen. Echo indicated a mild global dysfunction with apical kinesis of the anterior wall, stunning versus infarct. The day of discharge he felt well. He was agreeable to cardiac rehabilitation at [facility] which has been arranged. Exam Vital Signs (Last) Date Time Temp Pulse Resp B/P Pulse Ox O2 Delivery O2 Flow Rate FiO2 09/27/16 10:02 80 09/27/16 04:55 36.5 18 83/53 94 Room Air 09/26/16 03:13 2.00 Test 09/24/16 18:12 09/25/16 03:15 09/26/16 03:05 Hold Best Top Tube Received (Received) White Blood Count 11.7th/mm3 (3.8-10.1) Red Blood Count 4.74mil/mm3 (4.40-5.80) Hemoglobin 14.0g/dL (13.8-17.2) Hematocrit 40.7% (41.0-50.0) Mean Corpuscular Volume 85.9fL (81-100) Mean Corpuscular Hemoglobin 29.5pg (27.0-35.0) Mean Corpuscular Hemoglobin Concent 34.4% (32.0-37.0) Red Cell Distribution Width 14.3% (12.3-15.4) Platelet Count 195bil/L (150-400) Neutrophils (%) (Auto) 69.3% (40-74) Lymphocytes (%) (Auto) 19.0% (14-46) Monocytes (%) (Auto) 11.1% (4-12) Eosinophils (%) (Auto) 0.3% (0-5) Basophils (%) (Auto) 0.1% (0-3) Hemoglobin A1c 6.1% (4.8-5.6) Magnesium Level 2.4mg/dL (1.6-2.6) Total Bilirubin 1.5mg/dL (0.0-1.2) Aspartate Amino Transf (AST/SGOT) 284U/L (0-50) Alanine Aminotransferase (ALT/SGPT) 82U/L (0-44) Alkaline Phosphatase 48U/L (25-150) Total Creatine Kinase 3719U/L (21-232) Creatine Kinase MB 378.8ng/mL (0.0-10.4) Creatine Kinase MB % 10.2% (0.0-5.0) Troponin T 5.38ug/L (0.0-0.011) Pro-B-Type Natriuretic Peptide 897.8pg/mL (0-210) Total Protein 6.1g/dL (6.4-8.4) Albumin 3.6g/dL (3.4-5.0) Sodium Level 142mEq/L (134-144) Potassium Level 4.4mEq/L (3.5-5.2) Chloride Level 108mEq/L (97-108) Carbon Dioxide Level 23mmol/L (18-29) Blood Urea Nitrogen 9mg/dL (6-24) Creatinine 0.88mg/dL (0.76-1.27) Estimat Glomerular Filtration Rate 95mL/min (>59) Glucose Level 102mg/dL (60-99) Calcium Level 8.5mg/dL (8.5-10.1) Triglycerides Level 96mg/dL (0-149) Cholesterol Level 135mg/dL (100-199) LDL Cholesterol, Calculated 85.800mg/dL (0-99) VLDL Cholesterol 19.200mg/dL HDL Cholesterol 30mg/dL (>39) Cholesterol/HDL Ratio 4.50 (0.0-4.4) Discharge Medications Discharge Medications Aspirin Chew (Aspirin Chew) 81 Mg Chew 81 MG PO DAILY Prescribed by: DOLORES PURVIS MD Atorvastatin Calcium (Atorvastatin Calcium) 40 Mg Tablet 40 MG PO HS Prescribed by: DOLORES PURVIS MD Clopidogrel (Clopidogrel) 75 Mg Tablet 75 MG PO DAILY Prescribed by: DOLORES PURVIS MD Esomeprazole Magnesium (Nexium) 20 Mg Capsule.dr 20 MG PO DAILY (Reported) Lisinopril (Lisinopril) 5 Mg Tablet 5 MG PO DAILY Prescribed by: DOLORES PURVIS MD Metoprolol Tartrate (Metoprolol Tartrate) 25 Mg Tablet 12.5 MG PO BID Prescribed by: DOLORES PURVIS MD Followup Plan Disposition: Home, with Discharge Diet: Heart Healthy Discharge Activity: Limited until seen by PCP Patient Instructions Follow-up was scheduled [facility] cardiology in 2-4 weeks Will initiate referral to cardiac rehabilitation. Follow-up with PCP in: 2 weeks Time spent 40 minutes Dolores Purvis MD Sep 27, 2016 10:24
[2016-09-27 10:27] VITALS: BP 99/67; PULSE 82; RESP 16; O2SAT 95
[2016-09-27] MEDS ORDERED: NITR0.4T6 SL (12:12)
--- NOTE | 2016-09-27 12:29 | NUR ---
Discharge Patient ambulated off unit with family in a stable condition. Tele removed, IV DC'd intact, all personal belongings with patient. Discussed new medications of aspirin, atorvastatin, plavix, metoprolol and lisinopril with next due doses also discussed stopping Simvastatin-- patient verbalized understanding. Discussed smoking cessation as well as follow up appointment with PCP and cardiology in 2 weeks -- verbalized understanding.
== END 2016-09-27 13:13 | disposition home or self-care (01) | DRG 247 ==
LOC: SED 17:38 → SOUO 18:00 → CCU 19:52 → PCC 09-25 04:30
PROVIDERS: ADMIT Internal Medicine Cardiovascular Disease; ATTEND Internal Medicine
PROC: 027034Z Dilation of Coronary Artery, One Artery with Drug-eluting Intraluminal Device, Percutaneous Approach (ICD-10-PCS; principal; 2016-09-24)
PROC: 4A023N7 Measurement of Cardiac Sampling and Pressure, Left Heart, Percutaneous Approach (ICD-10-PCS; 2016-09-24)
PROC: B2111ZZ Fluoroscopy of Multiple Coronary Arteries using Low Osmolar Contrast (ICD-10-PCS; 2016-09-24)
DX: I21.02 ST elevation (STEMI) myocardial infarction involving left anterior descending coronary artery (principal); I10 Essential (primary) hypertension; E78.5 Hyperlipidemia, unspecified; F17.210 Nicotine dependence, cigarettes, uncomplicated; I25.10 Atherosclerotic heart disease of native coronary artery without angina pectoris; K21.9 Gastro-esophageal reflux disease without esophagitis